=== PATIENT | female | born 1975 | race Two or more races ===

== ENCOUNTER 2020-02-24 10:15 | Inpatient (IN) | payer OTHER ==
[~2020-02-24] VITALS: Ht 152.4 cm; Wt 56.2 kg
[2020-02-28] MEDS ORDERED: ZYRTEC10 MG (08:15)
[2020-02-28] MEDS ORDERED: FLONASE16 GM (08:16)
== END 2020-02-28 13:49 | disposition home or self-care (01) | DRG 743 ==
LOC: OB/GYN 02-27 07:15 → O/R 02-27 07:15 → SURH 02-27 10:15 → OB/GYN 02-27 16:02 → SURH 02-27 16:45 → OB/GYN 02-28 13:49
PROVIDERS: ADMIT Obstetrics & Gynecology Gynecologic Oncology; ATTEND Obstetrics & Gynecology Gynecologic Oncology
PROC: 0UB74ZZ Excision of Bilateral Fallopian Tubes, Percutaneous Endoscopic Approach (ICD-10-PCS; 2020-02-27)
PROC: 0UT94ZZ Resection of Uterus, Percutaneous Endoscopic Approach (ICD-10-PCS; principal; 2020-02-27 16:45)
DX: N72 Inflammatory disease of cervix uteri (principal); D25.1 Intramural leiomyoma of uterus; D25.2 Subserosal leiomyoma of uterus